=== PATIENT | female | born 1960 | race Caucasian/White ===

== ENCOUNTER 2017-03-15 22:44 | Observation (INO) ==
--- NOTE | 2017-03-16 04:20 | Internal Med History&Physical ---
Date of Encounter: 03/16/17 Time of Encounter: 04:09 Assessment and Plan (1) Gastroenteritis Current visit: Yes Status: Acute LIKELY VIRAL GASTROENTERITIS. hOLD OFF ANTIBIOTICS. cHECK STOOL STUDIES. (2) Chest pain Current visit: Yes Status: Acute ATYPICAL CHEST PAIN. WE WILL OUT ACUTE CORONARY SYNDROME. INITIAL TROPONIN NORMAL. ekg SHOWS NO ST- SEGMENT SHIFTS. CHEX SERIAL CARDIAC MARKERS.TELEMETRY MONITORING. CONTINUE ASPIRIN AND BETA TERRI Qualifiers: Qualified Code(s): R07.9 - Chest pain, unspecified Internal Medicine - H&P: HPI Chief complaint: nausea and diarrhea History of present illness: Ms. Grider is a 56 year old female with history of coronary artery disease status post PCI to the LAD 9 years ago, hypertension, history of cholecystectomy presents emergency room today with the main complain of nausea and diarrhea. Patient mentioned that since yesterday 6 PM she started feeling nauseous with recurrent episodes of non-bloody diarrhea and generalized weakness. She also complained of numbness in both hands and jaw pain there was no relationof this pain with exertion. SHE THOUGHT SHE HAD LOW-GRADE FEVER. sHE WAS CONCERNED ABOUT THE JAW PAIN AND ARM NUMBNESSAS IT WAS SIMILAR TO HER PRIOR COMPLAIN WHEN SHE HAD A HEART ATTACK SO WENT TO [facility] EMERGENCY ROOM ON WAS THEN TRANSFERRED TO A FACILITY FOR FURTHER MANAGEMENT. sHE DENIES ANY RECENT TRAVEL. nO RECENT ANTIBIOTIC USE. nO HEMATEMESIS, MELENA OR HEMATOCHEZIA.SHE WAS OFF CHEST PAIN DURING MY INTERVIEW Past Med Surg Social Fam HX - Past Medical History Medical history: CHF, coronary artery disease, hypertension, myocardial infarction, pulmonary embolus Psychiatric history: no psych history - Past Surgical History Surgical History: angioplasty/stent, , hysterectomy - Social History Smoking Status: Never smoker Smokeless Tobacco Status: No Alcohol use: rarely Drug use: none - Family History Mother History Unknown: Yes Hx Family Cardiac Disorders: Yes Father History Unknown: Yes Hx Family Cardiac Disorders: Yes Hx Family GI Disorders: Yes (colon cancer) Internal Medicine - H&P: Meds Aspirin 81 mg PO HS 03/16/17 [History] Flaxseed Oil/[place] 3,6,9 [Sv Flaxseed Oil 1,300 mg Sftgl] 2 each PO DAILY [History] Gluc HCl/Csa/Collagen/Hyalur A [Glucosamine Chondroitin Cap] 1 each PO DAILY [History] Lisinopril [Zestril] 5 mg PO HS 03/16/17 [History] Magnesium Glycinate [Mag Glycinate] 250 mg PO DAILY PRN 03/16/17 [History] Metoprolol [Lopressor] 25 mg PO DAILY 03/16/17 [History] Pantoprazole Sodium [Protonix] 40 mg PO BID 03/16/17 [History] Phenazopyrid/Cran/Vit C/B.coag [Azo Urinary Tract Health Pack] 1 each PO HS [History] Ubidecarenone [Coq10] 100 mg PO DAILY 03/16/17 [History] Allergies cimetidine [From Tagamet] Allergy (Verified 12/25/16 14:34) Hives ciprofloxacin [From Cipro] Allergy (Verified 12/25/16 14:34) Hives codeine Allergy (Verified 12/25/16 14:34) Hives morphine Allergy (Verified 12/25/16 14:34) Hives niacin [From Niaspan Extended-Release] Allergy (Verified 12/25/16 14:34) Hives red yeast rice Allergy (Verified 12/25/16 14:34) Chest Pain Aahdyug-Ztv-Kix Reductase Inhibitor [Statins] Allergy (Verified 12/25/16 14:34) Chest Pain Sulfa (Sulfonamide Antibiotics) Allergy (Verified 12/25/16 14:34) Hives sulfamethoxazole [From Bactrim] Allergy (Verified 03/16/17 01:54) Hives trimethoprim [From Bactrim] Allergy (Verified 03/16/17 01:54) Hives atorvastatin [From Lipitor] Adverse Reaction (Verified 03/16/17 01:54) Chest Pain ezetimibe [From Zetia] Adverse Reaction (Verified 03/16/17 01:54) Chest Pain lisinopril [From Zestril] Adverse Reaction (Verified 12/25/16 14:34) See Comments hair loss pravastatin Adverse Reaction (Verified 03/16/17 01:54) Chest Pain rosuvastatin [From Crestor] Adverse Reaction (Verified 03/16/17 01:54) Chest Pain simvastatin [From Zocor] Adverse Reaction (Verified 03/16/17 01:54) Chest Pain All Systems PM: A 10-system review of systems was performed and is negative for pertinent findings except as documented above in the HPI. Review of systems: 10 point review of systems is negative except for HPI - Constitutional Vitals: Temp Pulse Resp BP Pulse Ox 97.8 F 79 16 122/74 97 03/16/17 02:52 03/16/17 02:52 03/16/17 02:52 03/16/17 02:52 03/16/17 02:52 Exam: Gen.: patient is alert oriented times 3 cardiac: normal S1 S2 no additional sounds or murmurs chest: no active wheezing or bronchial breathing abdomen soft nontender nondistended normal bowel sounds lower extremity no swelling. Neuro: no new focal deficits
[2017-03-16 05:16] LABS: Basophils % 0.5 %; Eosinophils # 0.1 K/mcL (0.0-0.6); Eosinophils % 0.8 %; Immature Granulocytes % 0.1 % (0-4); Lymphocytes # 2.5 K/mcL (0.6-4.6); Lymphocytes % 32.2 %; Mean Corpuscular HGB Conc 33.3 g/dL (31.6-35.5); Mean Corpuscular Hemoglobin 31.6 pg (28.0-33.3); Mean Corpuscular Volume 94.9 fL (83.0-100.0); Mean Platelet Volume 9.1 fL (9.4-12.4); Monocytes # 0.4 K/mcL (0.0-1.3); Monocytes % 5.6 %; Neutrophils # 4.8 K/mcL (1.6-8.9); Platelet Count 393 K/mcL (140-400); Red Blood Count 4.11 M/mcL (3.82-4.97); Red Cell Distribution Width 12.1 % (11.5-14.5); Segmented Neutrophils % 60.8 %
[2017-03-16 05:46] LABS: Alanine Aminotransferase 13 Units/L (0-55); Albumin 3.5 g/dL (3.5-5.0); Albumin/Globulin Ratio 1.3 (1.1-2.2); Alkaline Phosphatase 66 Units/L (38-126); Aspartate Amino Transferase 17 Units/L (5-34); BUN/Creatinine Ratio 11 (6-26); Bilirubin,Total 0.9 mg/dL (0.2-1.2); Blood Urea Nitrogen 8 mg/dL (7-20); C-Reactive Protein 1 mg/L (Less than 5); Calcium 9.1 mg/dL (8.6-10.8); Carbon Dioxide 25 mEq/L (19-29); Chloride 110 mEq/L (98-109); Creatine Kinase 42 Units/L (29-168); Globulin 2.7 g/dL (2.4-3.5); Glucose 98 mg/dL (70-99); Magnesium 1.8 mg/dL (1.6-2.6); Osmolality,Calculated 292 (280-300); Potassium 3.6 mEq/L (3.5-4.5); Sodium 142 mEq/L (136-145); Total Protein 6.2 g/dL (6.0-8.3); eGFR For African Americans > 60 (> 60); eGFR For Non-African Americans > 60 (> 60)
[2017-03-16] MEDS ORDERED: *HR* Promethazine 25 MG/ML VIAL IVP PRN (08:48)
[2017-03-16] MEDS ORDERED: Naloxone 0.4 MG/ML INJ IVP PRN (08:48)
[2017-03-16] MEDS ORDERED: Acetaminophen 325 MG TABLET PO PRN (08:48)
[2017-03-16] MEDS ORDERED: Ondansetron 4 MG/2 ML VIAL IVP PRN (08:48)
[2017-03-16 15:28] VITALS: BP 115/75
--- NOTE | 2017-03-16 15:55 | Discharge Summary ---
Date of Encounter: 03/16/17 Time of Encounter: 14:30 - Discharge Diagnosis (1) Gastroenteritis Priority: Primary Status: Resolved Comments: Patient was able to tolerate a regular diet while admitted. She denied abdominal pain on day of discharge. She declined any antiemetic medications upon discharge. She was seen and evaluated by physical therapy who surmised she had no needs. (2) HTN (hypertension) Priority: Secondary Status: Chronic Comments: Controlled, follow-up outpatient. (3) Chest pain Priority: Primary Status: Resolved Qualifiers: Qualified Code(s): R07.9 - Chest pain, unspecified - Discharge Medications Home Medications: Aspirin 81 mg PO HS 03/16/17 [History] Flaxseed Oil/[place] 3,6,9 [Sv Flaxseed Oil 1,300 mg Sftgl] 2 tab PO DAILY [History] Gluc HCl/Csa/Collagen/Hyalur A [Glucosamine Chondroitin Cap] 1 tab PO DAILY [History] Lisinopril [Zestril] 5 mg PO HS 03/16/17 [History] Magnesium Glycinate [Mag Glycinate] 250 mg PO DAILY PRN 03/16/17 [History] Metoprolol XL (24 HR) Succ [Toprol Xl] 25 mg PO DAILY 03/16/17 [History] Pantoprazole Sodium [Protonix] 40 mg PO BID 03/16/17 [History] Phenazopyrid/Cran/Vit C/B.coag [Azo Urinary Tract Health Pack] 1 tab PO HS 03/16 [History] Ubidecarenone [Coq10] 100 mg PO DAILY 03/16/17 [History] Allergies/Adverse Reactions: Allergies cimetidine [From Tagamet] Allergy (Verified 12/25/16 14:34) Hives ciprofloxacin [From Cipro] Allergy (Verified 12/25/16 14:34) Hives codeine Allergy (Verified 12/25/16 14:34) Hives morphine Allergy (Verified 12/25/16 14:34) Hives niacin [From Niaspan Extended-Release] Allergy (Verified 12/25/16 14:34) Hives red yeast rice Allergy (Verified 12/25/16 14:34) Chest Pain Qlrmngt-Phe-Udl Reductase Inhibitor [Statins] Allergy (Verified 12/25/16 14:34) Chest Pain Sulfa (Sulfonamide Antibiotics) Allergy (Verified 12/25/16 14:34) Hives sulfamethoxazole [From Bactrim] Allergy (Verified 03/16/17 01:54) Hives trimethoprim [From Bactrim] Allergy (Verified 03/16/17 01:54) Hives atorvastatin [From Lipitor] Adverse Reaction (Verified 03/16/17 01:54) Chest Pain ezetimibe [From Zetia] Adverse Reaction (Verified 03/16/17 01:54) Chest Pain lisinopril [From Zestril] Adverse Reaction (Verified 12/25/16 14:34) See Comments hair loss pravastatin Adverse Reaction (Verified 03/16/17 01:54) Chest Pain rosuvastatin [From Crestor] Adverse Reaction (Verified 03/16/17 01:54) Chest Pain simvastatin [From Zocor] Adverse Reaction (Verified 03/16/17 01:54) Chest Pain Date of admission: 03/15/17 23:55 Primary care physician: Yenni Cunha Consults: 03/16/17 04:03 Consult to Occupational Therapy [CONS] Routine Comment: Evaluate, develop and implement POC Reason for Consult: weakness Consult to Physical Therapy [CONS] Routine Comment: Evaluate, develop and implement POC Reason for Consult: weakness Discharging clinician: Leonor Quinn Anticipated date of discharge: 03/16/17 - Patient Status Disposition: Home, Self-Care Condition: Good Functional capacity at discharge: independent ambulation Overall status at discharge: patient is back to baseline - Discharge Instructions Follow Up With: Yenni Cunha DO [Primary Care Provider] - Additional Instructions: Follow-up with primary care provider within one to 2 weeks - Diet and Activity Activity: increase activity as tolerated Diet: low fat, low cholesterol, low salt diet Hospital course: Ms. Grider is a 56 year old female with past medical history of CAD status post stent, hypertension, history of cholecystectomy. Patient presented to the emergency department chief complaint of nausea and diarrhea. Patient stating that on the day prior to presentation, she started to feel nauseous and had recurrent episodes of nonbloody diarrhea associated with generalized weakness. Patient also complained of numbness in both of her hands and jaw pain that was not related to exertion. Patient also had a subjective low-grade fever. Patient was mainly concerned about her jaw pain in her arm numbness stating this was similar to her prior complaint when she had a heart attack so she presented to [facility] emergency Department and was transferred to [facility] and admitted to the hospitalist service for further evaluation and management. Patient denied chest pain since arrival and throughout her admission at [facility]. Troponins negative 2. Orthostatic vital signs were unremarkable. Diarrhea also resolved. Patient was able to tolerate a regular diet while admitted. She was admitted and observed over the course of one day and at time of discharge, she ate a regular diet, denied abdominal or chest pain. She was seen and evaluated by physical therapy who surmised she had no needs. She was hemodynamically stable without leukocytosis or signs of an infection or signs of sepsis. Electrolytes normal as well. She was discharged home in stable condition with close outpatient follow-up recommended. - Time Spent with Patient Total time spent providing and/or coordinating discharge services: - Constitutional Vitals: Temp Pulse Resp BP Pulse Ox 97.8 F 71 18 115/75 96 03/16/17 15:27 03/16/17 15:27 03/16/17 15:27 03/16/17 15:27 03/16/17 15:27 General appearance: Present: A&O X 3, pleasant, no acute distress, answers questions appropriately - Head Head exam: Present: atraumatic, normocephalic - Eye Eye exam: Present: PERRL, conjuntiva pink, sclera anicteric Pupils: Present: PERRL - Neck Neck exam general surgery: Present: supple, trachea midline. Absent: lymphadenopathy - Respiratory Respiratory exam: Present: CTAB. Absent: accessory muscle use, rales, respiratory distress, rhonchi, wheezes - Cardiovascular Cardiovascular exam: Present: RRR, +S1, +S2. Absent: diastolic murmur, gallop, rubs, systolic murmur - GI/Abdominal GI/Abdominal exam: Present: normal bowel sounds, soft, no peritoneal signs. Absent: distended, tenderness - Extremities Exam Extremities exam: Present: warm, radial pulses palpable and symetrical. Absent : calf tenderness, cyanotic, pedal edema - Neurological Exam Neurological exam: Present: alert, CN II-XII intact, normal gait, oriented X3, no focal deficits, strengths equal and symetr throughout. Absent: pronater drift, facial droop, speech deficit - Skin Skin exam: Present: dry, intact, normal color, warm
[2017-03-16] MEDS ORDERED: Aspirin 81 MG TAB.CHEW PO SCH (21:00)
[2017-03-19 16:14] LABS: CK-MB (CK isoenzymes) 0 % (0-4); CK-MM (CK-isoenzymes) 100 % (96-100)
[2017-03-19 16:14] LABS: CK-MB (CK isoenzymes) 0 % (0-4); CK-MM (CK-isoenzymes) 100 % (96-100)
[2017-03-20 09:15] LABS: CK Total (Ck Isoenzymes) 39 U/L (20-180); CK-BB (CK isoenzymes) 0 % (0-0)
[2017-03-20 09:15] LABS: CK Total (Ck Isoenzymes) 42 U/L (20-180); CK-BB (CK isoenzymes) 0 % (0-0)
== END 2017-03-16 16:30 | disposition home or self-care (01) ==
LOC: 3BNU
PROVIDERS: ADMIT Hospitalist; ATTEND Nurse Practitioner Family